=== PATIENT | male | born 1975 ===

== ENCOUNTER 2021-04-02 00:05 | Inpatient (IN) | payer MEDICARE ==
[2021-04-02] MEDS ORDERED: Ondansetron PF 4 MG/2 ML Vial IVP PRN (02:49)
[2021-04-02] MEDS ORDERED: Acetaminophen 650 MG Suppository PR PRN (02:49)
[2021-04-02] MEDS ORDERED: hydrALAZINE 20 MG/ML VIAL SLOW IVP PRN (02:59)
[2021-04-02] MEDS ORDERED: Pantoprazole 80 MG in Sodium Chloride 0.9% 100 ML IVPB SCH (03:00)
[2021-04-02] MEDS ORDERED: Morphine 4 MG/ML VIAL SLOW IVP PRN (03:03)
[2021-04-02] MEDS ORDERED: Albuterol Sulfate 1.25 MG/3 ML NEB NEB PRN (03:03)
[2021-04-02] MEDS: Sodium Chloride 0.9% 1,000 ML IV SCH ×3 (04:21→23:26)
[2021-04-02] MEDS: Ondansetron PF 4 MG/2 ML Vial IVP PRN ×2 (04:47→08:29)
[2021-04-02 05:57] LABS: #Lymphocytes 1.2 thou/uL (1.20-3.40); #Monocytes 0.6 thou/uL (0.11-0.59); #Neutrophils 6.6 thou/uL (1.40-6.50); %Eosinophils 0.3 % (0.0-10.0); %Lymphocytes 14.2 % (21.0-51.0); %Monocytes 6.9 % (0.0-10.0); %Neutrophils 78.5 % (42.0-75.0); Hemoglobin 13.3 g/dL (14.0-18.0); Mean Corpuscular HGB CONC 33.3 g/dL (32.0-36.0); Mean Corpuscular Hemoglobin 30.1 pg (27.0-31.0); Mean Corpuscular Volume 90.3 fL (78.0-98.0); Mean Platelet Volume 7.6 fL (7.4-10.4); Platelet Count 278 thou/uL (130-400); Red Blood Cell (RBC) Count 4.42 mill/uL (4.70-6.10); White Blood Cell (WBC) Count 8.4 thou/uL (4.8-10.8)
[2021-04-02 06:24] LABS: ALT (SGPT) 22 U/L (8-55); AST (SGOT) 15 U/L (5-34); Albumin 3.9 g/dL (3.5-5.0); Alkaline Phosphatase 76 U/L (40-110); Anion Gap 13 mmol/L (10-20); BUN (Urea Nitrogen) 16 mg/dL (8.9-20.6); Bilirubin, Total 0.5 mg/dL (0.2-1.2); Calc. Creatinine Clearance 0 mL/min (70-130); Calcium 9.3 mg/dL (7.8-10.44); Carbon Dioxide 23 mmol/L (22-29); Chloride 102 mmol/L (98-107); Globulin 3.7 g/dL (2.4-3.5); Glucose 131 mg/dL (70-105); Potassium 3.8 mmol/L (3.5-5.1); Protein, Total 7.6 g/dL (6.0-8.3); Sodium 134 mmol/L (136-145)
[2021-04-02 07:53] VITALS: BMI 40.1
[2021-04-02] MEDS: Morphine 4 MG/ML VIAL SLOW IVP PRN ×4 (08:29→23:21)
[2021-04-02] MEDS ORDERED: Promethazine HCl 25 MG/ML VIAL ONE (09:09)
[2021-04-02] MEDS ORDERED: Fentanyl 100 MCG/2 ML VIAL ONE (09:23)
[2021-04-02] MEDS ORDERED: Lidocaine 1% PF 5 ML VIAL ONE (09:40)
[2021-04-02] MEDS ORDERED: Labetalol HCl 100 MG/20 ML VIAL ONE (09:40)
[2021-04-02] MEDS ORDERED: Rocuronium Bromide 10 MG/ML (10ML VIAL) ONE (09:40)
[2021-04-02] MEDS ORDERED: Dexamethasone 20 MG/5 ML VIAL ONE (09:40)
[2021-04-02] MEDS ORDERED: Ondansetron PF 4 MG/2 ML Vial ONE (09:40)
[2021-04-02] MEDS ORDERED: Succinylcholine 200 MG/10 ml SYRINGE FS ONE (09:40)
[2021-04-02] MEDS ORDERED: PROPOFOL 200 MG/20 ML VIAL ONE (09:40)
[2021-04-02] MEDS ORDERED: Promethazine HCl 6.25 MG in Sodium Chloride 0.9% 50 ML IVPB SCH (11:00)
[2021-04-02] MEDS: Pantoprazole 80 MG, Admixture Fee 1 EACH in Sodium Chloride 0.9% 100 ML IVPB SCH (11:38)
[2021-04-02] MEDS: Metoclopramide HCl 10 MG/2 ML VIAL IVP SCH ×2 (13:06→21:19)
[2021-04-02] MEDS ORDERED: traZODone HCl 150 MG TAB PO SCH (21:00)
[2021-04-02] MEDS ORDERED: Gabapentin 300 MG CAP PO SCH (21:00)
[2021-04-02] MEDS: busPIRone HCl 10 MG TAB PO SCH (21:15)
[2021-04-02] MEDS: hydrOXYzine 25 MG TAB PO SCH (21:16)
[2021-04-02] MEDS: Lisinopril 10 MG TAB PO SCH (21:17)
[2021-04-02] MEDS: lamoTRIgine 100 MG TAB PO SCH (21:17)
[2021-04-03] MEDS: Pantoprazole 80 MG, Admixture Fee 1 EACH in Sodium Chloride 0.9% 100 ML IVPB SCH (01:06)
[2021-04-03] MEDS: Metoclopramide HCl 10 MG/2 ML VIAL IVP SCH (06:11)
[2021-04-03 06:28] VITALS: TEMP 97.8
[2021-04-03 08:27] VITALS: BP 117/76
[2021-04-03] MEDS ORDERED: Atorvastatin Calcium 20 MG TAB PO SCH (09:00)
[2021-04-03] MEDS: busPIRone HCl 10 MG TAB PO SCH (09:06)
[2021-04-03] MEDS: Lisinopril 10 MG TAB PO SCH (09:06)
[2021-04-03] MEDS: lamoTRIgine 100 MG TAB PO SCH (09:07)
[2021-04-03] MEDS: hydrOXYzine 25 MG TAB PO SCH (09:07)
[2021-04-03] MEDS: Sodium Chloride 0.9% 1,000 ML IV SCH (09:07)
[2021-04-03] MEDS ORDERED: Metoclopramide 10 MG/10 ML UDCUP PO SCH (11:30)
[2021-04-05] MEDS ORDERED: FLU VACC QS2021-22(6MOS UP)/PF 60 MCG/0.5 ML SYRINGE IM ONE (09:00)
== END 2021-04-03 13:45 | disposition home or self-care (01) | DRG 392 ==
LOC: EDSTATUS 00:20 → T4-B 02:13
PROVIDERS: ADMIT Student in an Organized Health Care Education/Training Program; ATTEND Internal Medicine
PROC: 0DJ08ZZ Inspection of Upper Intestinal Tract, Via Natural or Artificial Opening Endoscopic (ICD-10-PCS; principal; 2021-04-02)
DX: R10.84 Generalized abdominal pain (principal); K92.1 Melena; Z68.41 Body mass index [BMI] 40.0-44.9, adult; I10 Essential (primary) hypertension; Z96.642 Presence of left artificial hip joint; Z96.611 Presence of right artificial shoulder joint; K40.20 Bilateral inguinal hernia, without obstruction or gangrene, not specified as recurrent; Z20.822 Contact with and (suspected) exposure to COVID-19; F31.70 Bipolar disorder, currently in remission, most recent episode unspecified; F41.9 Anxiety disorder, unspecified; K44.9 Diaphragmatic hernia without obstruction or gangrene; E66.01 Morbid (severe) obesity due to excess calories; M48.061 Spinal stenosis, lumbar region without neurogenic claudication; S32.020D Wedge compression fracture of second lumbar vertebra, subsequent encounter for fracture with routine healing; S32.040D Wedge compression fracture of fourth lumbar vertebra, subsequent encounter for fracture with routine healing; Z87.09 Personal history of other diseases of the respiratory system
CPT/HCPCS: 36415; 72131; 80053; 82274; 83690; 85025; 86850; 86900; 86901; C9113; J1100; J2270; J2405; J2550; J2704; J2765; J3010; J3490; J7050